=== PATIENT | female | born 1985 | race Asian ===

== ENCOUNTER 2017-01-06 01:15 | Emergency (ER) | payer OTHER ==
[~2017-01-06] VITALS: Ht 160 cm; Wt 59.0 kg
[2017-01-06 01:15] VITALS: BP_SYST 119
[2017-01-06 01:45] VITALS: BP_SYST 117
== END 2017-01-06 01:45 ==
LOC: SED 01:15
DX: Z02.89 Encounter for other administrative examinations (principal)
CPT/HCPCS: 99283